=== PATIENT | female | born 1970 | race African-American/Black ===

== ENCOUNTER 2018-03-22 13:48 | Outpatient (CLI) | payer OTHER | END 2018-03-22 13:49 | disposition home or self-care (01) | LOC: DTY/OP 13:48 | PROVIDERS: ATTEND Family Medicine | DX: G04.81 Other encephalitis and encephalomyelitis (principal); I10 Essential (primary) hypertension | CPT/HCPCS: 97802 ==

== ENCOUNTER 2018-08-15 15:40 | Outpatient (CLI) | payer MEDICARE | END 2018-08-15 15:41 | disposition home or self-care (01) | LOC: BICMAMMO 15:40 | PROVIDERS: ATTEND Family Medicine | DX: Z12.31 Encounter for screening mammogram for malignant neoplasm of breast (principal); Z80.3 Family history of malignant neoplasm of breast | CPT/HCPCS: 77063; 77067 ==